=== PATIENT | female | born 1950 | race Caucasian/White ===

== ENCOUNTER 2019-11-26 19:21 | Emergency (ER) | payer MEDICARE, SELFPAY ==
[2019-11-26 19:23] VITALS: BP 166/83; RESP 20; TEMP 36.7; O2SAT 97; BMI 30.8
--- NOTE | 2019-11-26 19:30 | XRR_ITS ---
PROCEDURE INFORMATION: Exam: XR Chest, 1 View Exam date and time: 11/26/2019 7:51 PM Age: 69 years old Clinical indication: Sternal or substernal pain; Patient HX: C/O substernal cp TECHNIQUE: Imaging protocol: XR of the chest Views: 1 view. COMPARISON: No relevant prior studies available. FINDINGS: Lungs: Lungs are clear bilaterally. Pleural space: No pleural effusion. No pneumothorax. Heart/Mediastinum: The cardiac silhouette and mediastinal contours are unremarkable. Vasculature: There is a dual-lead cardiac pacer via left subclavian approach. Vascular calcifications in the aorta. Bones/joints: Unremarkable for age. XR/XR chest 1V portable [id number] IMPRESSION: 1. No acute cardiopulmonary process. 2. Incidental/nonacute findings are listed in the report.
--- NOTE | 2019-11-26 19:30 | ECG_ITS ---
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 Measurements Intervals [place] Rate: 63 P: 30 NH: 185 QRS: 47 QRSD: 92 T: 53 QT: 397 QTc: 407 Interpretive Statements SINUS RHYTHM No previous ECG available for comparison Electronically Signed On 11-27-2019 19:41:36 CDT by Wendy Gomez M.D. [id number]
[2019-11-26 19:51] LABS: Basophils % 0.5 %; Eosinophils # 0.1 10^3/uL (0.0-0.8); Hematocrit 38.7 % (37.0-47.0); Hemoglobin 13.3 g/dL (11.5-15.3); Lymphocytes # 2.1 10^3/uL (0.8-4.8); Lymphocytes % 31.8 %; Mean Corpuscular HGB Conc 34.4 g/dL (30.0-36.0); Mean Corpuscular Hemoglobin 32.3 pg (28.0-34.0); Mean Corpuscular Volume 93.9 fL (81-99); Monocytes # 0.5 10^3/uL (0.2-0.9); Monocytes % 6.9 %; Neutrophils # 3.79 10^3/uL (1.8-7.7); Neutrophils % 58.5 %; Nucleated Red Blood Cells % 0 %; Platelet Count 227 10^3/cmm (130-400); Red Blood Count 4.12 10^6/uL (4.1-5.3); Red Cell Distribution Width 11.7 % (12.1-15.1); White Blood Count 6.5 10^3/uL (4.0-10.0)
[2019-11-26 20:13] LABS: Troponin(5th) Baseline 6 ng/L (0-10)
[2019-11-26 20:22] LABS: Alanine Aminotransferase 16 U/L (0-33); Albumin Level 4.5 g/dL (3.5-5.2); Alkaline Phosphatase 102 IU/L (35-105); Anion Gap 13.1 (5-19); Aspartate Amino Transferase 18 U/L (0-32); Blood Urea Nitrogen 19 mg/dL (8-23); Calcium 9.3 mg/dL (8.5-10.5); Carbon Dioxide 27 mmol/L (22-29); Chloride 105 mmol/L (98-107); Creatine Phosphokinase 57 U/L (26-192); Globulin 2.3 g/dL (1.3-4.6); Glucose 105 mg/dL (65-115); NT Pro B Type Natriuretic Pept 318 pg/mL (0-125); Osmolality Calculated 295 mOsm/kg (285-295); Potassium 4.1 mmol/L (3.5-5.1); Sodium 141 mmol/L (136-145); Total Bilirubin 0.9 mg/dL (0.15-1.2); Total Protein 6.8 g/dL (6.6-8.7)
[2019-11-26 20:44] LABS: Add Urine Microscopic? YES; Bilirubin Urine Neg (Negative); Blood Urine Neg (Negative); Glucose Urine UA Norm (Normal); Ketones Urine Negative (Negative); Leukocyte Esterase Urine Trace (Negative); Nitrate Urine Negative (Negative); Protein Urine Neg (Negative); Specific Gravity, Urine 1.015 (1.005-1.030); Urine Appearance Clear (CLEAR); Urine Color Yellow (Yellow); Urobilinogen Urine Norm (Negative); pH Urine 6.5 (5-7)
--- NOTE | 2019-11-26 20:58 | W.ED.CHESTPA ---
HPI - Chest Pain General: Chief Complaint: Chest Pain Stated Complaint: CHEST PAIN Time Seen by Provider: 11/26/19 19:28 History of Present Illness: HPI narrative: 69-year-old female resents with chest discomfort. She states that she had come back from a lunch break, and had sudden onset of substernal chest pain. No shortness of breath or nausea. The pain is now resolved with no intervention. She has a history of atrial fibrillation with pacemaker placement, but no history of coronary disease. In fact she says that she had a cath last year with no intervention MD complaint: chest pain Pertinent past history: other Onset (ago): hour(s) Prior episodes: Yes Onset: during rest and after eating Pain location: substernal Pain radiation: none Severity: severe Quality: sharp Relieving factors: nothing Exacerbating factors: nothing Associated symptoms: Deny abdominal pain, diaphoresis, dyspnea, fever(s), leg edema, nausea, palpitations or syncope Treatment prior to arrival: none Review of Systems Const: Denies: fever(s), chills or diaphoresis Eyes: Denies: change in vision Card: Reports: chest pain; Denies: palpitations, irregular heart rhythm or syncope Resp: Denies: dyspnea, productive cough or wheezing GI: Denies: abdominal pain or nausea : Denies: flank pain, difficulty voiding or dysuria Neuro: Denies: headache(s) or numbness in extremities Physical Exam Const: GENERAL APPEARANCE: well developed ORIENTATION/CONSCIOUSNESS: Yes oriented to person, Yes oriented to place and Yes oriented to time HENMT: COMMON NORMALS: normocephalic, external ears normal and Normal external nose present HEAD & SCALP: normocephalic FACE & SINUS: normal facial exam NOSE: Normal external nose present and No nasal discharge present EXTERNAL EAR: Yes external ears normal Eye: COMMON NORMALS: Equal, round and reactive pupils present, EOMs intact bilaterally and conjunctivae normal EYELID: eyelids normal CONJUNCTIVA: Yes conjunctivae normal PUPIL: Yes Equal, round and reactive pupils present Neck/C-Spine: GENERAL: No tracheal deviation Chest: COMMONS NORMALS: normal inspection of the chest CHEST: No tenderness Resp: COMMON NORMALS: clear to auscultation bilaterally EFFORT & INSPECTION: No tachypneic, No respiratory distress, No retractions, No uses accessory muscles and No tracheal deviation AUSCULTATION: clear to auscultation bilaterally, no rhonchi, no wheezes and lung sounds not diminished Cardio: COMMON NORMALS: regular rate and regular rhythm RATE: regular rate RHYTHM: regular rhythm HEART SOUNDS: no murmurs PERIPHERAL PULSES: radial pulses present GI: INSPECTION: No abdominal distension AUSCULTATION: No Hyperactive bowel sounds present and No Hypoactive bowel sounds present PALPATION: No Guarding due to palpation present (GI) and No Rigid due to palpation PERCUSSION: no dullness to percussion and no tympanic to percussion Neuro: SENSORIUM/ORIENTATION: Yes oriented to person, Yes oriented to place and Yes oriented to time Psych: COMMON NORMALS: mental status grossly normal Skin: COMMON NORMALS: no rashes or lesions noted GENERAL SKIN EXAM: no rashes or lesions noted Course Vital Signs: Vital signs: Vital Signs Temperature 98.1 F 11/26/19 19:23 Pulse Rate 60 11/26/19 23:10 Respiratory Rate 16 11/26/19 23:10 Blood Pressure 138/69 11/26/19 23:10 Pulse Oximetry 95 11/26/19 23:10 MDM - Chest Pain MDM Narrative: Medical decision making narrative: Self resolved chest pain. EKG was normal on arrival. Repeat at 2 hours shows a paced rhythm with no acute ST changes. White blood cell count 6.5. Hemoglobin 13.3. Chest x-ray is negative. Troponin is negative at 0 and 2 hours. She has no history of coronary disease. She will be allowed home. Lab Data: Labs: Lab Results 11/26/19 11/26/19 11/26/19 Range/Units 19:45 19:45 19:45 WBC 6.5 (4.0-10.0) 10^3/ uL RBC 4.12 (4.1-5.3) 10^6/u L Hgb 13.3 (11.5-15.3) g/dL Hct 38.7 (37.0-47.0) % MCV 93.9 (81-99) fL MCH 32.3 (28.0-34.0) pg MCHC 34.4 (30.0-36.0) g/dL RDW 11.7 L (12.1-15.1) % Plt Count 227 (130-400) 10^3/c mm MPV 10.0 (7.4-10.4) fL Neut % (Auto) 58.5 % Lymph % (Auto) 31.8 % Jennings % (Auto) 6.9 % Eos % (Auto) 2.0 % Baso % (Auto) 0.5 % Neut # (Auto) 3.79 (1.8-7.7) 10^3/u L Lymph # (Auto) 2.1 (0.8-4.8) 10^3/u L Jennings # (Auto) 0.5 (0.2-0.9) 10^3/u L Eos # (Auto) 0.1 (0.0-0.8) 10^3/u L Baso # (Auto) 0.0 (0.0-0.1) 10^3/u L Nucleated RBC % (a uto) 0 % Nucleated RBCs # 0.0 /100WBC D-Dimer (0-0.59) ug/mIFE U Sodium 141 (136-145) mmol/L Potassium 4.1 (3.5-5.1) mmol/L Chloride 105 (98-107) mmol/L Carbon Dioxide 27 (22-29) mmol/L Anion Gap 13.1 (5-19) BUN 19 (8-23) mg/dL Creatinine 0.7 (0.5-0.9) mg/dL GFR Calculation 83.0 L (90-130) mL/min Glucose 105 (65-115) mg/dL Calculated Osmolal ity 295 (285-295) mOsm/k g Calcium 9.3 (8.5-10.5) mg/dL Total Bilirubin 0.9 (0.15-1.2) mg/dL AST 18 (0-32) U/L ALT 16 (0-33) U/L Alkaline Phosphata se 102 (35-105) IU/L Creatine Kinase 57 (26-192) U/L Troponin T Baselin e 6 (0-10) ng/L Troponin T 120 Min [place] (0-10) ng/L Delta Troponin T (0-10) ABS# NT-Pro-B Natriuret Pep 318 H (0-125) pg/mL Total Protein 6.8 (6.6-8.7) g/dL Albumin 4.5 (3.5-5.2) g/dL Globulin 2.3 (1.3-4.6) g/dL Urine Color (Yellow) Urine Appearance (CLEAR) Urine pH (5-7) Ur Specific Gravit y (1.005-1.030) Urine Protein (Negative) Urine Glucose (UA) (Normal) Urine Ketones (Negative) Urine Blood (Negative) Urine Nitrate (Negative) Urine Bilirubin (Negative) Urine Urobilinogen (Negative) mg/dL Ur Leukocyte Ann ase (Negative) Urine RBC (0-2) /hpf Urine WBC (0-5) /hpf Ur Squamous Epith Cells (0-5) /hpf Amorphous Sediment Urine Bacteria (NONE) /hpf Hyaline Casts /lpf Urine Mucus /hpf 11/26/19 11/26/19 11/26/19 Range/Units 19:45 20:08 21:47 WBC (4.0-10.0) 10^3/ uL RBC (4.1-5.3) 10^6/u L Hgb (11.5-15.3) g/dL Hct (37.0-47.0) % MCV (81-99) fL MCH (28.0-34.0) pg MCHC (30.0-36.0) g/dL RDW (12.1-15.1) % Plt Count (130-400) 10^3/c mm MPV (7.4-10.4) fL Neut % (Auto) % Lymph % (Auto) % Jennings % (Auto) % Eos % (Auto) % Baso % (Auto) % Neut # (Auto) (1.8-7.7) 10^3/u L Lymph # (Auto) (0.8-4.8) 10^3/u L Jennings # (Auto) (0.2-0.9) 10^3/u L Eos # (Auto) (0.0-0.8) 10^3/u L Baso # (Auto) (0.0-0.1) 10^3/u L Nucleated RBC % (a uto) % Nucleated RBCs # /100WBC D-Dimer 0.40 (0-0.59) ug/mIFE U Sodium (136-145) mmol/L Potassium (3.5-5.1) mmol/L Chloride (98-107) mmol/L Carbon Dioxide (22-29) mmol/L Anion Gap (5-19) BUN (8-23) mg/dL Creatinine (0.5-0.9) mg/dL GFR Calculation (90-130) mL/min Glucose (65-115) mg/dL Calculated Osmolal ity (285-295) mOsm/k g Calcium (8.5-10.5) mg/dL Total Bilirubin (0.15-1.2) mg/dL AST (0-32) U/L ALT (0-33) U/L Alkaline Phosphata se (35-105) IU/L Creatine Kinase (26-192) U/L Troponin T Baselin e (0-10) ng/L Troponin T 120 Min [place] 6.00 (0-10) ng/L Delta Troponin T 0 (0-10) ABS# NT-Pro-B Natriuret Pep (0-125) pg/mL Total Protein (6.6-8.7) g/dL Albumin (3.5-5.2) g/dL Globulin (1.3-4.6) g/dL Urine Color Yellow (Yellow) Urine Appearance Clear (CLEAR) Urine pH 6.5 (5-7) Ur Specific Gravit y 1.015 (1.005-1.030) Urine Protein Neg (Negative) Urine Glucose (UA) Norm (Normal) Urine Ketones Negative (Negative) Urine Blood Neg (Negative) Urine Nitrate Negative (Negative) Urine Bilirubin Neg (Negative) Urine Urobilinogen Norm (Negative) mg/dL Ur Leukocyte Ann ase Trace H (Negative) Urine RBC 0-4 H (0-2) /hpf Urine WBC 0-4 H (0-5) /hpf Ur Squamous Epith Cells 5-10 H (0-5) /hpf Amorphous Sediment Not Reportable Urine Bacteria Trace (NONE) /hpf Hyaline Casts 0-4 H /lpf Urine Mucus Trace /hpf Discharge Plan Discharge Patient Disposition: Home Clinical Impression: Chest pain Qualifiers: Chest pain type: unspecified Qualified Code(s): R07.9 - Chest pain, unspecified Condition: Stable Discharge Orders: Discharge Order (Routine); Ordered 11/26/19 Ordered By: Johnny Franco Referrals: Alta Castillo MD [Primary Care Provider] - 4-7 days Discharge Diet: Advance as tolerated Discharge Activity: Increase activity as tolerated Patient Instructions: Chest Pain (ED) Activity Restrictions/Additional Instructions: Return for return of chest pain, shortness of breath, fever, cough, other concerning symptoms. 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
[2019-11-26 21:21] LABS: Add Urine Culture? No; Bacteria Urine TRACE /hpf; Hyaline Casts Urine 0-4 /lpf; Mucus Urine TRACE /hpf; RBC Urine 0-4 /hpf (0-2); WBC Urine 0-4 /hpf (0-5)
--- NOTE | 2019-11-26 21:30 | ECG_ITS ---
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 Measurements Intervals [place] Rate: 60 P: 186 MA: 220 QRS: 41 QRSD: 94 T: 49 QT: 422 QTc: 422 Interpretive Statements ELECTRONIC ATRIAL PACEMAKER ABNORMAL RHYTHM ECG Compared to ECG 11/26/2019 19:31:19 Sinus rhythm no longer present Electronically Signed On 11-27-2019 19:51:19 CDT by Wendy Gomez M.D. [email or web address]
[2019-11-26 22:20] LABS: Troponin 5 2HR Delta 0 ABS# (0-10)
[2019-11-26 23:10] VITALS: BP 138/69; PULSE 60; RESP 16; O2SAT 95
== END 2019-11-26 23:11 | disposition home or self-care (01) ==
PROVIDERS: Emergency Provider Emergency Medicine; PCP Internal Medicine
DX: R07.9 Chest pain, unspecified (principal)
CPT/HCPCS: 12345; 71045; 80053; 81001; 82550; 83880; 84484; 85025; 85378; 93005; 99283